=== PATIENT | female | born 1985 | race Caucasian/White ===

== ENCOUNTER 2021-01-01 08:47 | Outpatient (CLI) | payer BC, SELFPAY ==
--- NOTE | 2021-01-01 | ECHO_ITS ---
Patient Info Name: Minal Phillips Age: 35 years : 1985 Gender: Female Ht: 67 in Wt: 153 lbs BSA: 1.82 m2 HR: 78 bpm BP: 113 / 79 mmHg Technical Quality: Good Exam Date: 01/01/2021 9:07 AM Exam Location: [facility] Pulmonary Patient Status: Outpatient Admit Date: 01/01/2021 Staff Ordering Physician: Martin Taylor MD Record Retrieval Specialist: Ava Zhu RDCS Attending Provider: Martin Taylor MD Referring Physician: Brandon HERNANDEZ; Exam Type: CA echo doppler color flow Study Info Indications I34.1 - Nonrheumatic mitral (valve) prolapse R06.00 - Dyspnea, unspecified Complete two-dimensional, color flow and Doppler transthoracic echocardiogram is performed. Summary 1. Complete two-dimensional, color flow and Doppler transthoracic echocardiogram is performed. 2. Left ventricular chamber dimension is normal. 3. Left ventricular systolic function is normal, estimated at 60-65%. 4. The left ventricular diastolic function is normal. 5. E/e' 6 is not elevated. 6. There is mild mitral valve regurgitation. 7. No pulmonary hypertension, estimated pulmonary arterial systolic pressure is 13 mmHg. Left Ventricle E/e' 6 is not elevated. Left ventricular chamber dimension is normal. Left ventricular systolic function is normal, estimated at 60-65%. The left ventricular diastolic function is normal. Right Ventricle Right ventricular chamber dimension is normal. Right ventricular systolic function is normal. Left Atria Left atrial chamber dimension is normal. Right Atria Right atrial chamber dimension is normal. Aortic Valve The aortic valve is trileaflet. There is no aortic valve stenosis. There is no aortic valve regurgitation. Pulmonic Valve There is no pulmonic regurgitation. Mitral Valve No obvious mitral valve prolapse. There is no mitral valve stenosis. There is mild mitral valve regurgitation. Tricuspid Valve There is no tricuspid valve regurgitation. No pulmonary hypertension, estimated pulmonary arterial systolic pressure is 13 mmHg. Pericardium/Pleural There is no pericardial effusion. Inferior Vena Cava Normal inferior vena cava with >50% collapse upon inspiration consistent with normal right atrial pressure, 5 mmHg. Aorta The aortic root size at the sinus of Valsalva is normal. Left Ventricular Outflow Tract Name Value Normal LVOT 2D LVOT Diameter 1.9 cm LVOT Doppler LVOT Peak Gradient 4 mmHg LVOT Mean Gradient 2 mmHg LVOT VTI 21 cm LVOT VTI/AV VTI Ratio 0.8 LVOT Stroke Volume 60 ml LVOT CO 4.7 l/min LVOT CI 2.6 l/min/m2 Pulmonic Valve Name Value Normal RVOT Doppler RVOT Peak Gradient
== END 2021-01-01 08:48 | disposition home or self-care (01) ==
PROVIDERS: PCP Family Medicine; Visit Provider Obstetrics & Gynecology
DX: R06.00 Dyspnea, unspecified (principal); I34.1 Nonrheumatic mitral (valve) prolapse
CPT/HCPCS: 93306

== ENCOUNTER 2021-03-17 09:46 | Outpatient (RCR) | payer BC, SELFPAY ==
[2021-03-17 11:32] LABS: Hematocrit 33.1 % (37.0-47.0); Hemoglobin 11.2 g/dL (12.0-15.0)
[2021-03-17 11:43] LABS: Glucose 1 Hour PP 50gm Dose 97 mg/dL
[2021-03-17 12:23] LABS: HIV 1/2 Ab P24 Ag Result Negative (Negative)
[2021-03-17 14:39] LABS: Rapid Plasma Reagin Non-Reactive (NonReactive)
[2021-03-18] MEDS: RHO(D) IMMUNE GLOBULIN 300 MCG/2 ML SYRINGE IM (10:41)
== END 2021-06-15 23:59 | disposition home or self-care (01) ==
LOC: ANHLAB 09:46
PROVIDERS: PCP Family Medicine; Visit Provider Obstetrics & Gynecology
DX: Z11.4 Encounter for screening for human immunodeficiency virus [HIV] (principal); Z29.13 Encounter for prophylactic Rho(D) immune globulin; O36.0130 Maternal care for anti-D [Rh] antibodies, third trimester, not applicable or unspecified; Z3A.00 Weeks of gestation of pregnancy not specified
CPT/HCPCS: 36415; 82947; 85014; 85018; 85461; 86592; 86703; 90384; 96372; G0432; J2790

== ENCOUNTER 2021-05-25 00:10 | Inpatient (IN) | payer BC, SELFPAY ==
[2021-05-25] VITALS (126 sets, daily range): BP systolic 77–164; BP diastolic 52–137; PULSE 65–121; RESP 16–18; TEMP 36.6–37.6; O2SAT 89–100; BMI 27.2
--- OUTSIDE RECORDS SUMMARY | 2021-05-25 00:18 | XMS_ITS | Encounter Summary ---
:1985 Author Care Team Providers Name Role Phone Boo Calzada MD Primary Care Provider [phone] Reason for Visit OB visit [id number] Assessment and Plan Assessment Note Patient is __33_weeks . Dis cussed plan. 1. Routine care Discussion Note: None recorded.Patient educational handouts: No information available. Plan of Care Reminders Provider Appointments None ? ? recorded. Lab None ? ? recorded. Referral None ? ? recorded. Procedures None ? ? recorded. Surgeries None ? ? recorded. Imaging None ? ? recorded. Medications Name Start Date ? ? ? Medications Administered None recorded. Vitals Height Weight BMI Blood Pressure 5 ft 7 in 170 lbs 26.6 kg/m2 112/78 mm[Hg] Results Lab Results None recorded. Allergies None recorded. Problems Name Status Onset Date Source ? Care: History of Infertility Active ? Active 11/11/2020 ? RhD Negative Active 11/12/2020 ? Pica Active ? ? Female Infertility Active ? ? Adv
--- OUTSIDE RECORDS SUMMARY | 2021-05-25 00:18 | XMS_ITS ---
:1985 Author Care Team Providers Name Role Phone NATHALIE BERNABE MD Primary Care Provider [phone] Allergies None recorded. Medications Name Status Start Date Stop Date ? ? Active ? Not available Problems Name Status Onset Date Source ? Care: History of Infertility Active ? Active 11/11/2020 ? RhD Negative Active 11/12/2020 ? Pica Active ? ? Female Infertility Active ? ? Advanced Maternal Age Active ? ? Procedures Date Name Performed by ? ? In Vitro Fertilization Information not a vailable 10/13/2020 US, Obstetric, Transvaginal [place] [address] [place] [address] ([address]) 11/11/2020 [facility] [address] [place] [address] (Work [address]) 12/18/2020 US, [facility] [address] [place] [address] (Work Place) 01/13/2021 US, Obstetric, 2Nd or 3Rd Trimester [facility] [address] [place] [address] (Work [address]) 03/23/2021 US, Obstetric, Follow-up [place]
--- OUTSIDE RECORDS SUMMARY | 2021-05-25 00:18 | XMS_ITS | Encounter Summary ---
:1985 Author Care Team Providers Name Role Phone Boo Calzada MD Primary Care Provider [phone] Reason for Visit OB visit Assessment and Plan 1. care: history of in fertility 2. Advanced maternal age Discussion Note: None recorded.Patient educational handouts: No [...] BMI Blood Pressure 5 ft 7 in 173 lbs 27.1 kg/m2 113/80 mm[Hg] Results Lab Results None recorded. Allergies None recorded. Problems Name Status Onset Date Source ? Care: History of Infertility Active ? Active 11/11/2020 ? RhD Negative Active 11/12/2020 ? Pica Active ? ? Female Infertility Active ? ? Advanced Maternal Age Active ? ? Procedures Date
--- OUTSIDE RECORDS SUMMARY | 2021-05-25 00:18 | XMS_ITS | Encounter Summary ---
:1985 Author Care Team Providers Name Role Phone Boo Calzada MD Primary Care Provider [phone] Reason for Visit None recorded. Assessment and Plan 1. Medical examination for suspe cted condition ? US, obstetric, follow-up Discussion Note: None recorded.Patient educational handouts: No information available. Plan of Care Reminders Provider Appointments None ? ? recorded. Lab None ? ? recorded. Referral None ? ? recorded. Procedures None ? ? recorded. Surgeries None ? ? recorded. Imaging US, 03/23/2021 [place] [facility], Follow-up Medications Name Start Date ? ? ? Medications Administered None recorded. Vitals None recorded. Results Lab Results None recorded. Allergies None recorded. Problems Name Status Onset Date Source ? Care: History of Infertility Active ? Active 11/11/2020 ? RhD Negative Active 11/12/2020 ? Pica Active ? ? Female Infertility Active ? ? Advanced Maternal Age Active ? ? Procedures Date Name Performed by ?
--- OUTSIDE RECORDS SUMMARY | 2021-05-25 00:18 | XMS_ITS | Encounter Summary ---
:1985 Author Care Team Providers Name Role Phone Boo Calzada MD Primary Care Provider [phone] Reason for Visit OB visit Assessment and Plan 1. care: history of in fertility 2. Advanced maternal age 3. Pica Discussion Note: None recorded.Patient educational handouts: No [...] BMI Blood Pressure 5 ft 7 in 169 lbs 26.5 kg/m2 108/74 mm[Hg] Results Lab Results None recorded. Allergies None recorded. Problems Name Status Onset Date Source ? Care: History of Infertility Active ? Active 11/11/2020 ? RhD Negative Active 11/12/2020 ? Pica Active ? ? Female Infertility Active ? ? Advanced Maternal Age Active ? ?
--- OUTSIDE RECORDS SUMMARY | 2021-05-25 00:18 | XMS_ITS | Encounter Summary ---
:1985 Author Care Team Providers Name Role Phone Boo Calzada MD Primary Care Provider [phone] Reason for Visit OB visit Assessment and Plan 1. Advanced maternal age 2. care: history of in fertility Discussion Note: None recorded.Patient educational handouts: No [...] ft 7 in 173 lbs 27.1 kg/m2 112/77 mm[Hg] Results Lab Results None recorded. Allergies None recorded. Problems Name Status Onset Date Source ? Care: History of Infertility Active ? Active 11/11/2020 ? RhD Negative Active 11/12/2020 ? Pica Active ? ? Female Infertility Active ? ? Advanced Maternal Age Active ? ? Procedures Date
--- OUTSIDE RECORDS SUMMARY | 2021-05-25 00:18 | XMS_ITS | Encounter Summary ---
:1985 Author Care Team Providers Name Role Phone Boo Calzada MD Primary Care Provider [phone] Reason for Visit OB visit Assessment and Plan Assessment Note Patient is ___weeks . Discu ssed plan. 1. Advanced maternal age Discussion Note: None recorded.Patient [...] ft 7 in 173 lbs 27.1 kg/m2 123/81 mm[Hg] Results Lab Results None recorded. Allergies None recorded. Problems Name Status Onset Date Source ? Care: History of Infertility Active ? Active 11/11/2020 ? RhD Negative Active 11/12/2020 ? Pica Active ? ? Female Infertility Active ? ? Advanced Maternal Age Active ?
--- OUTSIDE RECORDS SUMMARY | 2021-05-25 00:18 | XMS_ITS | Encounter Summary ---
:1985 Author Care Team Providers Name Role Phone Boo Calzada MD Primary Care Provider [phone] Reason for Visit OB visit Assessment and Plan 1. Advanced maternal age 2. care: history of in fertility 3. RhD negative Discussion Note: None recorded.Patient educational handouts: No [...] BMI Blood Pressure 5 ft 7 in 167 lbs 26.2 kg/m2 104/72 mm[Hg] Results Lab Results None recorded. Allergies None recorded. Problems Name Status Onset Date Source ? Care: History of Infertility Active ? Active 11/11/2020 ? RhD Negative Active 11/12/2020 ? Pica Active ? ? Female Infertility Active ? ? Advanced Maternal Age Active ?
--- OUTSIDE RECORDS SUMMARY | 2021-05-25 00:18 | XMS_ITS | Encounter Summary ---
:1985 Author Care Team Providers Name Role Phone Boo Calzada MD Primary Care Provider [phone] Reason for Visit OB visit Assessment and Plan Assessment Note Brigette 1. Advanced maternal age 2. care: history [...] BMI Blood Pressure 5 ft 7 in 171 lbs 26.8 kg/m2 121/75 mm[Hg] Results Lab Results None recorded. Allergies None recorded. Problems Name Status Onset Date Source ? Care: History of Infertility Active ? Active 11/11/2020 ? RhD Negative Active 11/12/2020 ? Pica Active ? ? Female Infertility Active ? ? A
[2021-05-25 00:55] LABS: Basophils Percent Auto 0.3 % (0.2-1.2); Eosinophils Percent Auto 0.3 % (0-4.4); Hematocrit 33.7 % (37.0-47.0); Hemoglobin 10.9 g/dL (12.0-15.0); Immature Granulocyte Absolute 0.03 K/mm3 (0.00-0.031); Immature Granulocyte Percent A 0.3 % (0-0.5); Lymphocytes Absolute Auto 2.72 K/mm3 (0.9-3.2); Lymphocytes Percent Auto 30.5 % (18.3-44.2); Mean Corpuscular HGB Conc 32.3 g/dl (32-36); Mean Corpuscular Hemoglobin 29.4 pg (26-34); Mean Corpuscular Volume 90.8 fl (80-100); Mean Platelet Volume 11.6 fl (7.4-10.4); Monocytes Absolute Auto 0.8 K/mm3 (0.1-0.6); Monocytes Percent Auto 8.4 % (2.6-8.5); Neutrophils Absolute Auto 5.4 K/mm3 (1.3-6.7); Neutrophils Percent Auto 60.2 % (45.5-73.1); Platelet Count Result 201 k/mm3 (150-375); Red Blood Count 3.71 M/mm3 (4.2-5.4); Red Cell Distribution Width 12.6 % (11.5-14.5); White Blood Count 8.9 K/mm3 (4.5-10.0)
[2021-05-25] MEDS: DINOPROSTONE 10 MG VAG INSERT VAGINAL (00:56)
--- NOTE | 2021-05-25 00:57 | LDADM ---
This patient, Minal Phillips, was admitted to Labor/Delivery/Recovery 103 on 05/25/21 at 00:10. Plans for labor, pain management and were discussed with patient. Patient/family oriented to hospital policies and general routines including ID bracelet, bed and alarms, visiting hours, pain management, procedures, bathroom and other care routines, personal items, smoking policy, room service/diet and guest tray routines, infant security routines, and visiting hours. Patient/Family are encouraged to report perceived risks to care and to ask questions if they do not understand what they are told or what they should do. See OBIX for further documentation.
--- NOTE | 2021-05-25 03:33 | P.PNAN_ITS ---
Anes - Eval Pre Procedure Procedure: Labor epidural Date/Time: 05/25/21 03:33 Surgeon: marilu Preop Diagnosis: Abd pain with contractions Pre Op Diagnosis: IOL Patient Data Age: 35 Gender: F Height: 1.7 m Weight: 79 kg Last Vital Signs Temp 98.6 F 05/25/21 01:00 Pulse 79 05/25/21 03:00 BP 137/103 H 05/25/21 03:00 Allergies Allergy/AdvReac Type Severity Reaction Status Date / Time No Known Allergies Allergy Verified 05/09/21 15:39 Home Medications Medication Instructions Recorded Confirmed Type PNV cmb#95-ferrous fumarate-FA 1 tablet PO DAILY 05/09/21 05/09/21 History [] Laboratory Tests 05/25/21 05/25/21 05/25/21 00:41 00:41 00:41 WBC 8.9 K/mm3 K/mm3 (4.5-10.0) RBC 3.71 M/mm3 L M/mm3 (4.2-5.4) Hgb 10.9 g/dL L g/dL (12.0-15.0) Hct 33.7 % L % (37.0-47.0) MCV 90.8 fl fl (80-100) MCH 29.4 pg pg (26-34) MCHC 32.3 g/dl g/dl (32-36) RDW 12.6 % % (11.5-14.5) Plt Count 201 k/mm3 k/mm3 (150-375) MPV 11.6 fl H fl (7.4-10.4) Immature Gran % (Auto) 0.3 % % (0-0.5) Neut % (Auto) 60.2 % % (45.5-73.1) Lymph % (Auto) 30.5 % % (18.3-44.2) [place] % (Auto) 8.4 % % (2.6-8.5) Eos % (Auto) 0.3 % % (0-4.4) Baso % (Auto) 0.3 % % (0.2-1.2) Lymph # (Auto) 2.72 K/mm3 K/mm3 (0.9-3.2) [place] # (Auto) 0.8 K/mm3 H K/mm3 (0.1-0.6) Eos # (Auto) 0.0 K/mm3 K/mm3 (0-0.3) Baso # (Auto) 0.0 K/mm3 K/mm3 (0.0-0.1) Abs Immat Gran (auto) 0.03 K/mm3 K/mm3 (0.00-0.031) Absolute Neuts (auto) 5.4 K/mm3 K/mm3 (1.3-6.7) Absolute Nucleated RBC 0.0 K/mm3 K/mm3 (0.0-0.012) Nucleated RBC % 0.0 % % (0.0-0.2) RPR Pending Blood Type A Negative Antibody Screen Negative Patient hx anesthesia problems: none Family hx anesthesia problems: none Results Review: All pre-operative results and documents have been reviewed as part of the pre-operative evaluation. [facility], [facility] Past Medical History Medical History Overweight (BMI 25.0-29.9) Family History Family History Mother Hypertension Grandparent Hypertension Social History Social History Smoking status: Never smoker Second hand tobacco smoke exposure: No Substance use: never Spiritual care concerns: No Exam Day of Procedure 05/25/21 03:33 Patient weight: normal Airway: Mallampati scale class II Neurological: alert and oriented
[2021-05-25] MEDS: fentaNYL CITRATE INJ (*CRX) 100 MCG/2 ML VIAL 50 MCG IV PUSH (04:53)
[2021-05-25] MEDS: fentaNYL CITRATE INJ (*CRX) 100 MCG/2 ML VIAL IV PUSH (06:16)
[2021-05-25] MEDS: LACTATED RINGERS 1,000 ML 999 ML IV CONT ×2 (06:38→07:11)
[2021-05-25] MEDS: OXYTOCIN 30 UNITS/NS 500 ML 30 UNITS/500 ML BAG IV CONT (07:49)
--- NOTE | 2021-05-25 07:55 | PM.IMHP ---
H&P: HPI History of Present Illness Date/Time: 05/25/21 07:55 Chief Complaint: induction of labor Narrative: Minal is a 34yo (daughter by surrogate) at 39.0 for elective IOL. complicated by AMA, Pica, Rh neg, and prior infertility with spontaneous conception. has otherwise been uncomplicated. GBS neg. Review of Systems Review of Systems: All systems reviewed & are unremarkable except as noted in HPI and below PMFSH Past Medical History Medical History Overweight (BMI 25.0-29.9) Family History Family History Mother Hypertension Grandparent Hypertension Social History Social History Smoking status: Never smoker Second hand tobacco smoke exposure: No Substance use: never Spiritual care concerns: No Meds Home Medications and Allergies Home Medications Medication Instructions Recorded Confirmed Type PNV cmb#95-ferrous fumarate-FA 1 tablet PO DAILY 05/09/21 05/09/21 History [] Allergies Allergy/AdvReac Type Severity Reaction Status Date / Time No Known Allergies Allergy Verified 05/09/21 15:39 Vital Signs Vital Signs - 24 hr 05/25/21 00:46 05/25/21 01:00 05/25/21 01:15 Temperature 98.6 F Pulse Rate 106 H 88 80 Blood Pressure 126/108 H 118/92 H 125/86 Pulse Oximetry 05/25/21 01:30 05/25/21 01:45 05/25/21 02:01 Temperature Pulse Rate 80 76 77 Blood Pressure 123/85 133/83 109/64 Pulse Oximetry 05/25/21 02:15 05/25/21 02:31 05/25/21 02:45 Temperature Pulse Rate 81 85 78 Blood Pressure 113/70 120/75 118/79 Pulse Oximetry 05/25/21 03:00 05/25/21 04:35 05/25/21 05:00 Temperature 98.7 F Pulse Rate 79 81 Blood Pressure 137/103 H 136/82 Pulse Oximetry 05/25/21 06:20 05/25/21 06:59 05/25/21 07:00 Temperature 99.6 F Pulse Rate 75 79 Blood Pressure 114/56 L 134/92 H Pulse Oximetry 99 05/25/21 07:04 05/25/21 07:09 05/25/21 07:10 Temperature Pulse Rate 84 Blood Pressure 107/82 Pulse Oximetry 89 L 96 05/25/21 07:11 05/25/21 07:13 05/25/21 07:14 Temperature Pulse Rate 82 80 Blood Pressure 144/78 H 146/69 H Pulse Oximetry 100 05/25/21 07:16 05/25/21 07:19 05/25/21 07:21 Temperature Pulse Rate 79 121 H 81 Blood Pressure 121/64 77/52 L 128/78 Pulse Oximetry 100 05/25/21 07:23 05/25/21 07:24 05/25/21 07:25 Temperature Pulse Rate 80 84 Blood Pressure 128/73 131/78 Pulse Oximetry 100 05/25/21 07:28 05/25/21 07:29 05/25/21 07:30 Temperature 99.7 F H Pulse Rate 80 Blood Pressure 131/76 Pulse Oximetry 100 05/25/21 07:31 05/25/21 07:33 05/25/21 07:34 Temperature Pulse Rate 76 82 Blood Pressure 130/76 143/69 H Pulse Oximetry 99 05/25/21 07:36 05/25/21 07:38 05/25/21 07:39 Temperature Pulse Rate 77 78 Blood Pressure 138/71 127/69 Pulse Oximetry 100 05/25/21 07:40 05/25/21 07:43 05/25/21 07:44 Temperature Pulse Rate 81 84 Blood Pressure 129/75 124/93 H Pulse Oximetry 100 05/25/21 07:45 05/25/21 07:48 05/25/21 07:49 Temperature Pulse Rate 86 75 Blood Pressure 137/114 H 139/83 Pulse Oximetry 100 05/25/21 07:51 05/25/21 07:53 05/25/21 07:54 Temperature Pulse Rate 79 79 Blood Pressure 141/78 H 133/78 Pulse Oximetry 100 Exam Const: General: no acute distress Resp: Effort & Inspection: normal respiratory effort Auscultation: clear to auscultation bilaterally Cardio: Rate: regular rate Rhythm: regular rhythm GI: GI Palp: Yes Soft to palpation Extrem: General: normal to inspection H&P: Results Labs Labs: Short CBC 03/07/22 Range/Units 00:41 WBC 8.9 (4.5-10.0) K/mm3 Hgb 10.9 L (12.0-15.0) g/dL Hct 33.7 L (37.0-47.0) % Plt Count 201 (150-375) k/mm3 Assessment a
[2021-05-25 08:52] LABS: Rapid Plasma Reagin Non-Reactive (NonReactive)
--- NOTE | 2021-05-25 11:30 | PM.OBPRVD ---
OB - Delivery Note Procedure Delivery date: 05/25/21 Procedure: Normal spontaneous vaginal delivery. Intrapartal Events: Decelerations Induction method: AROM, Per Pitocin Protocol and Per Cervidil Protocol Delivery monitor: External FHT and External Uterine Route of delivery: Episiotomy description: Right Mediolateral Laceration Description: Perineal - 2nd Degree Delivery repair: vicryl Specimen: No Quantitative Blood Loss (ml): 495 Anesthesia type: Epidural Disposition: Floor Narrative: Mother was pushing effectively but baby was having longer decelerations after each push. With the last, the heart rate stayed low and decision was made to proceed with RML episiotomy after consenting patient. With adequate expulsive efforts by the mother, the baby's head was delivered OA. The baby's anterior shoulder was delivered under the pubic symphysis without difficulty. The posterior shoulder and the rest of the baby delivered without difficulty. Nuchal cord x2 reduced. The infant was placed on the mothers chest and suctioned and stimulated. The cord was clamped and cut after 30 seconds. Mother and baby both stable. [place] Baby Date of : 05/25/21 Time of : 10:59 Weeks of gestation at delivery: 39 Infant gender: Female Weight (pounds): 7 Weight (ounces): 9 presentation: vertex Placenta delivery description: Spontaneous Cord Vessel Description: 3 Vessels, Nuchal Cord (x2) and Delayed Cord Clamping score one minute: 6 score five minutes: 9
[2021-05-25] MEDS: OXYTOCIN 30 UNITS/NS 500 ML 30 UNITS/500 ML BAG 125 UNITS IV CONT (11:55)
[2021-05-25] MEDS: IBUPROFEN 600 MG TABLET PO ×2 (12:46→18:50)
[2021-05-25] MEDS: WITCH HAZEL 40 PADS 1 PAD TOPICAL (12:47)
[2021-05-25] MEDS: BENZOCAINE 20% AER SPR (*SP) 56 GM CAN 1 SPRAY TOPICAL (12:47)
[2021-05-26] MEDS: IBUPROFEN 600 MG TABLET PO ×3 (00:25→13:35)
[2021-05-26] MEDS: ACETAMINOPHEN 325 MG TABLET 650 MG PO ×3 (01:55→16:35)
[2021-05-26 03:30] VITALS: BP 104/69; PULSE 84; RESP 16; TEMP 36.8; O2SAT 99
[2021-05-26 04:51] LABS: Hematocrit 25.6 % (37.0-47.0); Hemoglobin 8.4 g/dL (12.0-15.0)
--- NOTE | 2021-05-26 07:34 | WPDANLDNPN2 ---
Anes-Prog Note L&D-Neuraxial Date/Time: 05/26/21 07:34 Patient feedback: Patient satisfied with post-operative pain management.
[2021-05-26 07:50] VITALS: BP 122/85; PULSE 85; RESP 18; TEMP 37; O2SAT 100
--- NOTE | 2021-05-26 07:55 | P.PNOB_ITS ---
OB - PN: Subj Subjective Date/time seen: 05/26/21 07:55 Patient comments: no complaints and pain well controlled baby status: doing well and nursing well [place] feeding status: exclusively breast feeding Narrative: Would like DC home today. OB - PN: Obj Data Labs CBC & Chem 7: 05/26/21 03:41 Labs: Laboratory Results - last 24 hr 05/25/21 05/26/21 05/26/21 00:41 03:41 03:41 Hgb 8.4 L Hct 25.6 L RPR Non-reactive Blood Type A Negative Antibody Screen Negative Screen Negative Baby's Blood Type A pos Baby's FANG Negative Doses of RhIg Required 1 OB - PN A/P Assessment and Plan (1) , delivered: Code(s): O80 - Encounter for full-term uncomplicated delivery Status: Acute Plan day: 1 Plan: routine care and discharge home Comments: DC instructions given Time Spent With Patient Time: Total time spent is greater than 50% in coordination of care (as documented) at patient's floor/unit and/or counseling patient: Time with patient: less than 15 minutes Exam Narrative: NAD abdomen soft, nontender, fundus firm below the umbilicus Extremities nontender, 1+ edema
--- NOTE | 2021-05-26 07:58 | PM.OBDSVD ---
DS: Admitting Diagnosis Discharge Date 05/26/21 Admitting Diagnosis term IUP DS: Discharge Diagnosis Discharge Diagnosis (1) , delivered: Code(s): O80 - Encounter for full-term uncomplicated delivery Status: Acute OB - DS: Summary Hospital Course Hospital Course: Minal was admitted for elective IOL at 39 weeks. She proceeded to have an uncomplicated vaginal delivery. She was discharged home in stable condition on PPD1. OB Procedures : Ultrasound OB Procedures Intrapartum: Spontaneous Vag Delivery OB Procedures: : None Peripartum Data Delivery Method: Natural Vaginal Laceration Description: Perineal - 2nd Degree Episiotomy description: Right Mediolateral complications: none Status at Discharge Functional status at discharge: independent ambulation Time Spent with Patient Time attestation: Total time spent providing and/or coordinating discharge services: Exam Narrative: NAD abdomen soft, appropriately tender Ext non tender, 1+ edema DS: Data Data Completed and Pending Labs on day of discharge: Labs from last 24 hours 05/26/21 05/26/21 05/25/21 03:41 03:41 00:41 Hgb 8.4 L Hct 25.6 L RPR Non-reactive Blood Type A Negative Antibody Screen Negative Screen Negative Baby's Blood Type A pos Baby's FANG Negative Doses of RhIg Required 1 Discharge Plan Discharge Attending physician on discharge: Michelle Owen Discharging Clinician: Michelle Owen Anticipated Discharge Date/Time: 05/26/21 07:57 Patient Disposition: Home, Self-Care Activity: may shower and pelvic rest Diet: regular Patient Instructions: Antibiotic Form Stand Alone Forms: General Discharge Information Follow-up/Referrals: Michelle Owen MD [Physician] - 4 Weeks Discharge Medications: Continued PNV cmb#95-ferrous fumarate-FA [] 28 mg iron- 800 mcg Tablet 1 tablet PO DAILY RF: 0 Date of admission: 05/25/21 00:10 Primary Care Provider: BryceBoo Admitting Provider: Michelle Owen Attending physician on admission: Michelle Owen Condition: Stable
[2021-05-26] MEDS: DOCUSATE SODIUM 100 MG CAPSULE PO ×2 (08:39→16:32)
[2021-05-26] MEDS: POLYSACCHARIDE IRON COMPLEX 150 MG CAPSULE PO ×2 (08:39→16:32)
[2021-05-26] MEDS: MULTIVIT/MIN/PREN/FOL AC/IRON TABLET 1 TAB PO (08:39)
--- NOTE | 2021-05-26 09:20 | PC.NURSE ---
0730 - Introductions were made and consulted with patient to assess needs related to . Mother led conversation with her experience with feeding baby so far. Mother states she latches infant well on the right breast and needs assistance with the left breast. Mother voiced understanding to call for assistance with latch when comes back to the room to breastfeed. [phone] Mother works well with her infant. Reviewed good handwashing when working with infant, breast, nipples and how to protect the nipples with a deep latch. Encouraged understanding the benefits of skin to skin, responding to feeding cues, frequencies of feeding 8-12 times in 24 hours (approximately 2-3 hours), duration of feedings, milk production, intake/output feeding sheet and signs of adequate intake. Discussed stimulating with skin to skin, hand expressing colostrum, touch and talking to infant to encourage eating at the breast. Reviewed positioning and alignment, supporting breast, off-centered (asymmetrical latch) and leading with the chin with big open wide gape. Infant latched optimally to the left breast in football position. RN suggested that mother to bring the baby to the breast and not attempt to take the breast to the infant. Education given to mother of how to visualize suck/swallow ratios and drinking at the breast. Infant was able to maintain latch without discomfort to mother. Resources used to facilitate learning were used from the visual handout/mom and baby guide. Mother voiced understanding responding to feeding cues, may need to stimulating infant approximately 2-3 hours from the start of the last feeding, calling for assistance for latch assistance, if the does not latch or there discomfort . Reported to primary RN.
[2021-05-26] MEDS: RHO(D) IMMUNE GLOBULIN 300 MCG/2 ML SYRINGE IM (12:31)
== END 2021-05-26 16:57 | disposition home or self-care (01) | DRG 806 ==
LOC: ANHLDR 00:16 → ANHOB2 16:35
PROVIDERS: Admitting Provider Obstetrics & Gynecology; PCP Family Medicine; Visit Provider Obstetrics & Gynecology
DX: O69.81X0 Labor and delivery complicated by cord around neck, without compression, not applicable or unspecified (principal); O36.0930 Maternal care for other rhesus isoimmunization, third trimester, not applicable or unspecified; Z37.0 Single live birth; Z3A.39 39 weeks gestation of pregnancy; O36.8330 Maternal care for abnormalities of the fetal heart rate or rhythm, third trimester, not applicable or unspecified
CPT/HCPCS: 36415; 85014; 85018; 85025; 85461; 86592; 86850; 86900; 86901; 90384; A9270; J2590; J2790; J2795; J3010; J7120